=== PATIENT | female | born 1950 | race Caucasian/White ===

== ENCOUNTER → 2018-01-21 | Outpatient (CLI) | payer MEDICARE, BC ==
[~2018-01-21] MED LIST: CALCIUM CITRAT1 EA17; Z.0.CRESTOR10 MG PO; Z.0.LISINOPRIL5 MG PO; Z.0.MULTIVITAMINS1 E
== END ==
LOC: CARD 13:44
PROVIDERS: ATTEND Family Medicine
DX: Z13.6 Encounter for screening for cardiovascular disorders (principal); I65.21 Occlusion and stenosis of right carotid artery
CPT/HCPCS: 93880